=== PATIENT | female | born 1995 | race Caucasian/White ===

== ENCOUNTER 2017-10-06 11:35 | Emergency (ER) | payer SELFPAY ==
[2017-10-06 12:35] VITALS: BP 113/62
--- NOTE | 2017-10-06 13:00 | UC ---
General HPI - HPI Summary HPI Summary: Pt c/o of sudden onset of nausea and vomiting upon waking each morning X 7 days. Pt reports that she has concern for anxiety and depression. She denies fever, chills, nasal congestion, cough and ST. Pt reports that she has been feeling tired and unmotivated daily. Denies suicidal ideation at time of visit. Pt does report that in the past she has had intermittent fleeting thoughts of suicide but does not have a plan to harm herself or others. - History of Current Complaint Chief Complaint: UCGI Stated Complaint: VOMITING ANXIETY Time Seen by Provider: 10/06/17 12:39 Hx Obtained From: Patient Hx Last Menstrual Period: 3 yrs. Onset/Duration: Gradual Onset, Lasting Days Timing: Intermittent Episodes Lasting: Onset Severity: Mild Current Severity: None Associated Signs & Symptoms: Positive: Nausea, Vomiting - Allergy/Home Medications Allergies/Adverse Reactions: Allergies Allergy/AdvReac Type Severity Reaction Status Date / Time No Known Allergies Allergy Verified 10/06/17 12:35 Home Medications: Home Medications Medroxyprogesterone Acetate (A [Depo-Provera] 400 mg IM SEE INSTRUCTIONS [History Confirmed 10/06/17] PMH/Surg Hx/FS Hx/Imm Hx Previously Healthy: Yes Other Cardiovascular History: mother: anxiety - Surgical History Surgical History: Yes Surgery Procedure, Year, and Place: left ankle x 2; lasik 05/2017 - Family History Known Family History: Positive: Other - anxiety: mother - Social History Occupation: Employed Full-time Lives: With Family Alcohol Use: Occasionally Substance Use Type: None Smoking Status (MU): Heavy Every Day Tobacco Smoker Have You Smoked in the Last Year: Yes Review of Systems Constitutional: Fatigue Skin: Negative Eyes: Negative ENT: Negative Respiratory: Negative Cardiovascular: Negative Gastrointestinal: Vomiting, Nausea Genitourinary: Negative Motor: Negative Neurovascular: Negative Musculoskeletal: Negative Neurological: Negative Psychological: Anxious, Depressed Is Patient Immunocompromised?: No All Other Systems Reviewed And Are Negative: Yes Physical Exam Triage Information Reviewed: Yes Appearance: Well-Appearing Vital Signs: Initial Vital Signs Temp 98.9 F 10/06/17 12:13 Pulse 78 10/06/17 12:13 Resp 20 10/06/17 12:13 BP 113/62 10/06/17 12:13 Pulse Ox 98 10/06/17 12:13 Eye Exam: Normal ENT Exam: Normal Dental Exam: Normal Neck exam: Normal Respiratory Exam: Normal Cardiovascular Exam: Normal Abdominal Exam: Normal Bowel Sounds: Positive: Present Musculoskeletal Exam: Normal Neurological Exam: Normal Psychological Exam: Normal Skin Exam: Normal Course/Dx - Course Course Of Treatment: I discussed with patient the need to be futher evaluated by a mental health provider. Pt denies having any current symptoms of depresssion or anxiety but was mostly concerned about her daily nausea vomiting in the morning. Pt states that she wakes feeling nauseous, vomits once or twice then feels better. - Differential Dx - Multi-Symptom Differential Diagnoses: Other - nausea and vomiting Provider Diagnoses: nausea. vomiting. possible depression, anxiety Discharge - Discharge Plan Condition: Stable Disposition: HOME Prescriptions: Ondansetron [Zofran 8 MG Odt] 8 mg PO Q8H PRN #15 tab PRN Reason: Nausea Patient Education Materials: Acute Nausea and Vomiting (ED) Referrals: ARNOLD Billingsley [Primary Care Provider] - If Needed Additional Instructions: You have been referred to the following. Please establish care at one of the providers listed below: [facility] Address: [address] [place] [address], [address], [place] [address] Francisca Jimenez [facility] [address] [place] [address] PHONE [phone] FAX [phone] Rosalba Thomason Address: [address] [place] [address]
== END 2017-10-06 13:16 | disposition home or self-care (01) ==
LOC: UCCORT 11:35
DX: R11.2 Nausea with vomiting, unspecified (principal); Z72.0 Tobacco use; Z72.89 Other problems related to lifestyle
CPT/HCPCS: 99202; G0463